=== PATIENT | female | born 1975 | race Caucasian/White ===

== ENCOUNTER 2022-01-24 06:35 | Inpatient (IN) | payer MEDICAID ==
[~2022-01-24] VITALS: Ht 165.1 cm; Wt 165.2 kg
[2022-01-24] VITALS (46 sets, daily range): BP systolic 109–155; BP diastolic 58–92
[2022-01-24] MEDS ORDERED: NALOXONE HCL 0.4 MG/ML 1ML VIAL IV PRN (07:00)
[2022-01-24] MEDS ORDERED: NALOXONE HCL 1 MG/ML 2ML VIAL IV ONE ×4 (07:00→07:15)
[2022-01-24] MEDS ORDERED: SODIUM CHLORIDE 0.9% 1,000 ML IV ONE (07:00)
[2022-01-24] MEDS ORDERED: ONDANSETRON HCL 4MG/2ML INJ IV ONE (07:15)
[2022-01-24] MEDS ORDERED: NALOXONE HCL 1 MG/ML 2ML VIAL IV PRN (07:15)
[2022-01-24 07:29] LABS: BG BASE EXCESS -1.4 mmol/L (-2.0-2.0); BG CARBOXYHEMOGLOBIN 1.1 % (0.5-1.5); BG DEOXYHEMOGLOBIN 4.6 % (0.0-5.0); BG FRACTION INSPIRED OXYGEN 21; BG HCO3 ACT 23.3 mmol/L (22.0-26.0); BG METHEMOGLOBIN 0.4 % (0.0-1.5); BG OXYGEN SATURATION 95.3 % (92.0-98.5); BG OXYHEMOGLOBIN 93.9 % (94.0-97.0); BG PCO2 39.3 mmHg (35.0-45.0); BG PH 7.391 (7.350-7.450); BG PO2 77.1 mmHg (75.0-100.0); BG SAMPLE SITE LEFT RADIAL; BG TOTAL HEMOGLOBIN 14.9 g/dL (12.0-18.0); BG VENT MODE ROOM AIR
[2022-01-24 08:30] LABS: PROTHROMBIN TIME 10.9 sec (9.6-11.0)
[2022-01-24] MEDS ORDERED: SUCCINYLCHOLINE CHLORIDE 200MG/10ML IV ONE (08:45)
[2022-01-24] MEDS ORDERED: MANNITOL 20% (20GM/100ML) BAG 500ML PREMIX IV ONE (08:45)
[2022-01-24] MEDS ORDERED: ETOMIDATE 2MG/ML 10ML VIAL IV ONE (08:45)
[2022-01-24] MEDS ORDERED: MIDAZOLAM HCL 50 MG in DEXTROSE 5% WATER 40 ML IV ONE (08:45)
[2022-01-24] MEDS ORDERED: LEVETIRACETAM 1000MG PREMIX 200 ML IV ONE (08:45)
[2022-01-24] MEDS ORDERED: PROPOFOL 10MG/ML 100ML 100 ML IV ONE (08:45)
[2022-01-24] MEDS ORDERED: FENTANYL CITRATE/PF 50MCG/ML 5ML VIAL ONE (08:47)
[2022-01-24] MEDS ORDERED: LIDOCAINE HCL 1%/EPI 1:200,000 30 ML VIAL ONE (08:56)
[2022-01-24] MEDS ORDERED: THROMBIN (BOVINE) 5000 UNITS/VIAL TOP ONE (08:57)
[2022-01-24] MEDS ORDERED: GENTAMICIN SULF 40MG/ML 2ML VIAL ONE (08:57)
[2022-01-24] MEDS ORDERED: MANNITOL 20% 250 ML IV SCH (09:00)
[2022-01-24] MEDS ORDERED: NICARDIPINE 100 MG in SODIUM CHLORIDE 0.9% 60 ML IV PRN ×2 (09:15→09:45)
[2022-01-24] MEDS ORDERED: MIDAZOLAM HCL 2 MG/2 ML VIAL IV ONE (09:30)
[2022-01-24] MEDS ORDERED: LIDOCAINE HCL 1% 30ML VIAL (10MG/ML) ONE ×2 (09:59→14:55)
[2022-01-24] MEDS ORDERED: MIDAZOLAM HCL 100 MG in SODIUM CHLORIDE 0.9% 100 ML IV PRN (10:00)
[2022-01-24 10:02] LABS: CLARITY URINE TURBID (CLEAR); COLOR URINE YELLOW (YELLOW); KETONES URINE NEGATIVE (NEGATIVE); LEUKOCYTE ESTERASE URINE 1+ (NEGATIVE); NITRITE URINE NEGATIVE (NEGATIVE); OCCULT BLOOD URINE 2+ (NEGATIVE); PROTEIN URINE 2+ (NEGATIVE); SPECIFIC GRAVITY URINE 1.028 (1.005-1.030)
[2022-01-24 10:52] LABS: *AMPHETAMINES SCREEN URINE NEGATIVE (NEGATIVE); *BARBITURATES SCREEN URINE NEGATIVE (NEGATIVE); *BENZODIAZEPINES SCREEN URINE NEGATIVE (NEGATIVE); *COCAINE SCREEN URINE NEGATIVE (NEGATIVE); CANNABINOID URINE SCREEN NEGATIVE (NEGATIVE); METHADONE URINE SCREEN NEGATIVE (NEGATIVE); PHENCYCLIDINE URINE SCREEN NEGATIVE (NEGATIVE)
[2022-01-24] MEDS ORDERED: PROPOFOL 200MG/20ML VIAL IV ONE (10:52)
[2022-01-24 11:09] LABS: OPIATES URINE SCREEN PRESUMTIVE POSITIVE (NEGATIVE)
[2022-01-24] MEDS ORDERED: PHENYTOIN SODIUM 250MG/5ML VIAL IV ONE ×2 (11:13→11:14)
[2022-01-24] MEDS ORDERED: LEVETIRACETAM 500 MG in SODIUM CHLORIDE 0.9% 100 ML IV SCH (12:00)
[2022-01-24] MEDS ORDERED: ONDANSETRON HCL 4MG/2ML INJ ONE (12:08)
[2022-01-24] MEDS ORDERED: DEXAMETHASONE 4MG/ML 1ML VIAL ONE (12:08)
[2022-01-24] MEDS ORDERED: EPHEDRINE SULFATE 50MG/ML VIAL ONE (12:08)
[2022-01-24] MEDS ORDERED: VECURONIUM BROMIDE 10 MG/VIAL IV ONE (12:08)
[2022-01-24] MEDS ORDERED: ACETAMINOPHEN 500MG TABLET ONE (12:14)
[2022-01-24 13:46] LABS: BG BASE EXCESS -2.7 mmol/L (-2.0-2.0); BG CARBOXYHEMOGLOBIN 0.6 % (0.5-1.5); BG DEOXYHEMOGLOBIN 4.2 % (0.0-5.0); BG FRACTION INSPIRED OXYGEN 50; BG HCO3 ACT 22.3 mmol/L (22.0-26.0); BG METHEMOGLOBIN 0.2 % (0.0-1.5); BG OXYGEN SATURATION 95.8 % (92.0-98.5); BG PCO2 39.7 mmHg (35.0-45.0); BG PH 7.367 (7.350-7.450); BG PO2 81.5 mmHg (75.0-100.0); BG SAMPLE SITE LEFT RADIAL; BG TOTAL HEMOGLOBIN 15.2 g/dL (12.0-18.0); BG TOTAL RESPIRATORY RATE 24 b/min; BG VENT MODE VENT - AC
[2022-01-24] MEDS: NICARDIPINE 100 MG in SODIUM CHLORIDE 0.9% 60 ML IV PRN ×2 (13:59→22:11)
[2022-01-24] MEDS ORDERED: CEFAZOLIN SODIUM 1000MG/VIAL IV SCH (14:00)
[2022-01-24] MEDS ORDERED: LEVETIRACETAM 500MG PREMIX 100 ML IV SCH (14:00)
[2022-01-24] MEDS: PROPOFOL 10MG/ML 100ML 100 ML IV PRN ×3 (14:11→21:56)
[2022-01-24] MEDS: DEXT 5%/LACTATED RINGERS 1,000 ML IV SCH (16:18)
[2022-01-24] MEDS: PHENYTOIN SODIUM 100MG/2ML VIAL IV SCH ×2 (16:18→21:00)
[2022-01-24] MEDS: CEFAZOLIN 1000MG PREMIX 50 ML IV SCH ×2 (16:18→21:00)
[2022-01-24 16:20] LABS: HEMATOCRIT. 42.5 % (36.0-48.0); HEMOGLOBIN. 13.9 g/dL (12.0-16.0); MEAN CORPUSCULAR HEMOGLOBIN 28.1 pg (28.0-32.0); MEAN PLATELET VOLUME 8.6 fl (7.4-10.4); PLATELET 318 x1000/uL (130-400); RED BLOOD CELL COUNT 4.94 mill/uL (4.2-5.4); RED CELL DISTRIBUTION WIDTH 14.8 % (11.6-14.6)
[2022-01-24 16:38] LABS: CHLORIDE 102 mEq/L (98-107)
[2022-01-24 17:06] LABS: CREATINE KINASE 126 IU/L (26-192); ETHANOL BLOOD < 10 mg/dL
[2022-01-24 20:22] LABS: PLATELET ESTIMATE NORMAL
[2022-01-24] MEDS: PIPERACILLIN/TAZOBACTAM 3.375 G in DEXTROSE 5% WATER 50 ML IV SCH (21:55)
[2022-01-24] MEDS: LEVETIRACETAM 500MG PREMIX 100 ML IV SCH (22:20)
[2022-01-24] MEDS ORDERED: SODIUM CHLORIDE 0.9% 1,000 ML IV SCH (23:30)
[2022-01-25] VITALS (92 sets, daily range): BP systolic 15–131; BP diastolic 15–104
[2022-01-25] MEDS: PROPOFOL 10MG/ML 100ML 100 ML IV PRN ×8 (01:14→22:29)
[2022-01-25] MEDS: NICARDIPINE 100 MG in SODIUM CHLORIDE 0.9% 60 ML IV PRN ×3 (05:15→20:26)
[2022-01-25] MEDS: PIPERACILLIN/TAZOBACTAM 3.375 G in DEXTROSE 5% WATER 50 ML IV SCH ×3 (05:15→22:09)
[2022-01-25] MEDS: PHENYTOIN SODIUM 100MG/2ML VIAL IV SCH ×3 (05:15→22:09)
[2022-01-25] MEDS: CEFAZOLIN 1000MG PREMIX 50 ML IV SCH ×3 (05:16→21:26)
[2022-01-25 05:44] LABS: BASOPHILS % 0.1 % (0.0-2.0); HEMATOCRIT. 40.5 % (36.0-48.0); HEMOGLOBIN. 13.5 g/dL (12.0-16.0); LYMPHOCYTES % 8.6 % (20.0-50.0); MEAN CORPUSCULAR HEMOGLOBIN 27.8 pg (28.0-32.0); MEAN CORPUSCULAR VOLUME 83.9 fL (81.0-99.0); MEAN PLATELET VOLUME 8.4 fl (7.4-10.4); MONOCYTES % 4.6 % (2.0-8.0); NEUTROPHILS % 86.7 % (40.0-76.0); PLATELET 339 x1000/uL (130-400); RED BLOOD CELL COUNT 4.83 mill/uL (4.2-5.4); RED CELL DISTRIBUTION WIDTH 14.6 % (11.6-14.6)
[2022-01-25] MEDS ORDERED: NALOXONE HCL 0.4MG/ML VIAL IV PRN (07:30)
[2022-01-25 09:00] LABS: BG BASE EXCESS -1.8 mmol/L (-2.0-2.0); BG CARBOXYHEMOGLOBIN 0.3 % (0.5-1.5); BG DEOXYHEMOGLOBIN 3.5 % (0.0-5.0); BG FRACTION INSPIRED OXYGEN 50; BG HCO3 ACT 21.8 mmol/L (22.0-26.0); BG METHEMOGLOBIN 0.2 % (0.0-1.5); BG OXYGEN SATURATION 96.5 % (92.0-98.5); BG PCO2 33.9 mmHg (35.0-45.0); BG PH 7.426 (7.350-7.450); BG PO2 85.1 mmHg (75.0-100.0); BG SAMPLE SITE RIGHT RADIAL; BG TOTAL HEMOGLOBIN 14.3 g/dL (12.0-18.0); BG VENT MODE VENT - AC
[2022-01-25] MEDS: DESMOPRESSIN ACETATE 4MCG/ML AMP IV SCH ×2 (09:00→12:38)
[2022-01-25] MEDS: DEXT 5%/LACTATED RINGERS 1,000 ML IV SCH ×2 (09:01→23:25)
[2022-01-25] MEDS: PANTOPRAZOLE SODIUM 40 MG/VIAL IV SCH (09:04)
[2022-01-25] MEDS: LEVETIRACETAM 500MG PREMIX 100 ML IV SCH ×2 (09:04→21:26)
[2022-01-25] MEDS: MORPHINE SULFATE 4 MG/ML CPJ (NOT FOR IM USE) IV PRN ×4 (09:08→22:30)
[2022-01-25] MEDS ORDERED: LABETALOL HCL 100 MG in DEXT 5% WATER 80 ML IV PRN (10:30)
[2022-01-25 17:28] LABS: CHLORIDE 109 mEq/L (98-107)
[2022-01-26] VITALS (92 sets, daily range): BP systolic 0–138; BP diastolic -2–78
[2022-01-26] MEDS: PROPOFOL 10MG/ML 100ML 100 ML IV PRN ×8 (01:58→22:05)
[2022-01-26] MEDS: NICARDIPINE 100 MG in SODIUM CHLORIDE 0.9% 60 ML IV PRN ×3 (03:22→17:22)
[2022-01-26] MEDS: PHENYTOIN SODIUM 100MG/2ML VIAL IV SCH ×3 (05:13→21:29)
[2022-01-26] MEDS: CEFAZOLIN 1000MG PREMIX 50 ML IV SCH ×2 (05:13→13:50)
[2022-01-26] MEDS: PIPERACILLIN/TAZOBACTAM 3.375 G in DEXTROSE 5% WATER 50 ML IV SCH ×3 (06:15→21:29)
[2022-01-26 06:20] LABS: BASOPHILS % 0.4 % (0.0-2.0); EOSINOPHILS % 0.1 % (0.0-5.0); HEMATOCRIT. 38.8 % (36.0-48.0); HEMOGLOBIN. 12.8 g/dL (12.0-16.0); LYMPHOCYTES % 20.1 % (20.0-50.0); MEAN CORPUSCULAR VOLUME 84.6 fL (81.0-99.0); MEAN PLATELET VOLUME 8.1 fl (7.4-10.4); MONOCYTES % 7.2 % (2.0-8.0); NEUTROPHILS % 72.2 % (40.0-76.0); PLATELET 298 x1000/uL (130-400); RED BLOOD CELL COUNT 4.59 mill/uL (4.2-5.4); RED CELL DISTRIBUTION WIDTH 14.9 % (11.6-14.6)
[2022-01-26] MEDS: MORPHINE SULFATE 4 MG/ML CPJ (NOT FOR IM USE) IV PRN (06:31)
[2022-01-26 06:59] LABS: CHLORIDE 112 mEq/L (98-107)
[2022-01-26] MEDS ORDERED: DEXT 5%/0.45% NACL 1000ML 1,000 ML IV SCH (07:45)
[2022-01-26 07:51] LABS: BG BASE EXCESS -0.3 mmol/L (-2.0-2.0); BG CARBOXYHEMOGLOBIN 0.3 % (0.5-1.5); BG DEOXYHEMOGLOBIN 3.8 % (0.0-5.0); BG HCO3 ACT 24.2 mmol/L (22.0-26.0); BG METHEMOGLOBIN 0.2 % (0.0-1.5); BG OXYGEN SATURATION 96.2 % (92.0-98.5); BG OXYHEMOGLOBIN 95.7 % (94.0-97.0); BG PCO2 38.8 mmHg (35.0-45.0); BG PH 7.412 (7.350-7.450); BG PO2 84.1 mmHg (75.0-100.0); BG SAMPLE SITE RIGHT BRACHIAL; BG TOTAL HEMOGLOBIN 13.8 g/dL (12.0-18.0); BG VENT MODE VENT - AC
[2022-01-26] MEDS: LEVETIRACETAM 500MG PREMIX 100 ML IV SCH ×2 (08:17→21:29)
[2022-01-26] MEDS: PANTOPRAZOLE SODIUM 40 MG/VIAL IV SCH (08:18)
[2022-01-26] MEDS ORDERED: DEXT 5%/LACTATED RINGERS 1,000 ML IV SCH (13:45)
[2022-01-26] MEDS: DEXT 5%/0.45% NACL 1000ML 1,000 ML IV SCH (13:50)
[2022-01-26] MEDS: IPRATROPIUM/ALBUTEROL 0.5-3(2.5)MG/3ML NEB HHN PRN (21:00)
[2022-01-27] VITALS (94 sets, daily range): BP systolic -2–143; BP diastolic -2–80
[2022-01-27] MEDS: NICARDIPINE 100 MG in SODIUM CHLORIDE 0.9% 60 ML IV PRN ×3 (00:43→21:35)
[2022-01-27] MEDS: PROPOFOL 10MG/ML 100ML 100 ML IV PRN ×8 (00:44→23:12)
[2022-01-27] MEDS: DEXT 5%/0.45% NACL 1000ML 1,000 ML IV SCH ×2 (03:43→23:28)
[2022-01-27] MEDS: PIPERACILLIN/TAZOBACTAM 3.375 G in DEXTROSE 5% WATER 50 ML IV SCH ×3 (05:13→21:00)
[2022-01-27] MEDS: PHENYTOIN SODIUM 100MG/2ML VIAL IV SCH ×3 (05:13→21:00)
[2022-01-27 06:23] LABS: BASOPHILS % 0.3 % (0.0-2.0); EOSINOPHILS % 0.6 % (0.0-5.0); HEMATOCRIT. 38.6 % (36.0-48.0); HEMOGLOBIN. 12.7 g/dL (12.0-16.0); LYMPHOCYTES % 21.9 % (20.0-50.0); MEAN CORPUSCULAR HEMOGLOBIN 27.8 pg (28.0-32.0); MEAN CORPUSCULAR VOLUME 84.7 fL (81.0-99.0); MEAN PLATELET VOLUME 8.2 fl (7.4-10.4); MONOCYTES % 8.5 % (2.0-8.0); NEUTROPHILS % 68.7 % (40.0-76.0); PLATELET 270 x1000/uL (130-400); RED BLOOD CELL COUNT 4.55 mill/uL (4.2-5.4); RED CELL DISTRIBUTION WIDTH 14.5 % (11.6-14.6)
[2022-01-27] MEDS: CARVEDILOL 3.125 MG TABLET PO SCH ×2 (08:34→21:00)
[2022-01-27] MEDS: PANTOPRAZOLE SODIUM 40 MG/VIAL IV SCH (08:34)
[2022-01-27] MEDS: LEVETIRACETAM 500MG PREMIX 100 ML IV SCH ×2 (08:35→20:59)
[2022-01-27 08:44] LABS: BG BASE EXCESS -0.6 mmol/L (-2.0-2.0); BG CARBOXYHEMOGLOBIN 0.9 % (0.5-1.5); BG DEOXYHEMOGLOBIN 2.8 % (0.0-5.0); BG FRACTION INSPIRED OXYGEN 50; BG HCO3 ACT 23.8 mmol/L (22.0-26.0); BG METHEMOGLOBIN 0.2 % (0.0-1.5); BG OXYGEN SATURATION 97.2 % (92.0-98.5); BG OXYHEMOGLOBIN 96.1 % (94.0-97.0); BG PH 7.414 (7.350-7.450); BG PO2 87.2 mmHg (75.0-100.0); BG SAMPLE SITE RIGHT RADIAL; BG TOTAL HEMOGLOBIN 12.8 g/dL (12.0-18.0); BG VENT MODE VENT - AC
[2022-01-27 10:47] LABS: CHLORIDE 112 mEq/L (98-107)
[2022-01-27] MEDS: MORPHINE SULFATE 4 MG/ML CPJ (NOT FOR IM USE) IV PRN (15:28)
[2022-01-27] MEDS: ACETAMINOPHEN 650MG/20.3ML UDC PO PRN (18:41)
[2022-01-28] VITALS (100 sets, daily range): BP systolic -4–140; BP diastolic -4–80
[2022-01-28] MEDS: PROPOFOL 10MG/ML 100ML 100 ML IV PRN ×7 (03:19→23:41)
[2022-01-28] MEDS: ACETAMINOPHEN 650MG/20.3ML UDC PO PRN ×3 (04:05→20:44)
[2022-01-28 04:56] LABS: BASOPHILS % 0.4 % (0.0-2.0); EOSINOPHILS % 1.9 % (0.0-5.0); HEMATOCRIT. 35.5 % (36.0-48.0); HEMOGLOBIN. 11.7 g/dL (12.0-16.0); LYMPHOCYTES % 17.7 % (20.0-50.0); MEAN CORPUSCULAR HEMOGLOBIN 27.8 pg (28.0-32.0); MEAN CORPUSCULAR VOLUME 83.9 fL (81.0-99.0); MEAN PLATELET VOLUME 8.2 fl (7.4-10.4); MONOCYTES % 6.8 % (2.0-8.0); NEUTROPHILS % 73.2 % (40.0-76.0); PLATELET 238 x1000/uL (130-400); RED BLOOD CELL COUNT 4.23 mill/uL (4.2-5.4); RED CELL DISTRIBUTION WIDTH 14.8 % (11.6-14.6)
[2022-01-28 05:18] LABS: CHLORIDE 111 mEq/L (98-107)
[2022-01-28] MEDS: PHENYTOIN SODIUM 100MG/2ML VIAL IV SCH ×3 (06:16→20:35)
[2022-01-28] MEDS: PIPERACILLIN/TAZOBACTAM 3.375 G in DEXTROSE 5% WATER 50 ML IV SCH ×2 (06:16→13:58)
[2022-01-28] MEDS: NICARDIPINE 100 MG in SODIUM CHLORIDE 0.9% 60 ML IV PRN ×2 (07:21→16:12)
[2022-01-28 07:28] LABS: BG BASE EXCESS -0.9 mmol/L (-2.0-2.0); BG CARBOXYHEMOGLOBIN 0.2 % (0.5-1.5); BG DEOXYHEMOGLOBIN 5.8 % (0.0-5.0); BG HCO3 ACT 23.5 mmol/L (22.0-26.0); BG METHEMOGLOBIN 0.2 % (0.0-1.5); BG OXYGEN SATURATION 94.2 % (92.0-98.5); BG OXYHEMOGLOBIN 93.8 % (94.0-97.0); BG PCO2 38.2 mmHg (35.0-45.0); BG PH 7.407 (7.350-7.450); BG PO2 72.4 mmHg (75.0-100.0); BG SAMPLE SITE RIGHT RADIAL; BG TOTAL HEMOGLOBIN 12.6 g/dL (12.0-18.0); BG VENT MODE VENT - AC
[2022-01-28] MEDS: CARVEDILOL 3.125 MG TABLET PO SCH ×2 (09:00→21:00)
[2022-01-28] MEDS: PANTOPRAZOLE SODIUM 40 MG/VIAL IV SCH (09:28)
[2022-01-28] MEDS: LEVETIRACETAM 500MG PREMIX 100 ML IV SCH ×2 (09:28→20:36)
[2022-01-28] MEDS ORDERED: POTASSIUM CHLORIDE 20MEQ/PACKET PO NR (09:45)
[2022-01-28] MEDS: IPRATROPIUM/ALBUTEROL 0.5-3(2.5)MG/3ML NEB HHN PRN (14:24)
[2022-01-28] MEDS: SODIUM CHLORIDE 0.45% 1,000 ML IV SCH (15:52)
[2022-01-28] MEDS: CEFEPIME 1,000 MG in DEXTROSE 5% WATER 50 ML IV SCH (18:59)
[2022-01-28] MEDS ORDERED: VANCOMYCIN 2,000 MG in DEXT 5% WATER 500 ML IV NR (19:00)
[2022-01-29] VITALS (110 sets, daily range): BP systolic -4–142; BP diastolic -4–87
[2022-01-29] MEDS: PROPOFOL 10MG/ML 100ML 100 ML IV PRN ×6 (03:02→16:32)
[2022-01-29 04:46] LABS: CLARITY URINE CLOUDY (CLEAR); COLOR URINE YELLOW (YELLOW); KETONES URINE NEGATIVE (NEGATIVE); LEUKOCYTE ESTERASE URINE NEGATIVE (NEGATIVE); NITRITE URINE NEGATIVE (NEGATIVE); OCCULT BLOOD URINE 3+ (NEGATIVE); PH URINE 5.5 (4.5-8.0); PROTEIN URINE TRACE (NEGATIVE); SPECIFIC GRAVITY URINE 1.014 (1.005-1.030); UROBILINOGEN URINE 0.2 E.U./dL (0.2-1.0)
[2022-01-29] MEDS: VANCOMYCIN 1G PREMIX 200 ML IV SCH ×3 (05:00→21:33)
[2022-01-29 05:29] LABS: BASOPHILS % 0.3 % (0.0-2.0); EOSINOPHILS % 3.4 % (0.0-5.0); HEMOGLOBIN. 10.8 g/dL (12.0-16.0); LYMPHOCYTES % 21.7 % (20.0-50.0); MEAN CORPUSCULAR HEMOGLOBIN 27.9 pg (28.0-32.0); MEAN CORPUSCULAR VOLUME 84.8 fL (81.0-99.0); MEAN PLATELET VOLUME 8.2 fl (7.4-10.4); MONOCYTES % 6.5 % (2.0-8.0); NEUTROPHILS % 68.1 % (40.0-76.0); PLATELET 214 x1000/uL (130-400); RED BLOOD CELL COUNT 3.88 mill/uL (4.2-5.4); RED CELL DISTRIBUTION WIDTH 14.6 % (11.6-14.6)
[2022-01-29] MEDS: PHENYTOIN SODIUM 100MG/2ML VIAL IV SCH ×3 (05:44→21:33)
[2022-01-29] MEDS: CEFEPIME 1,000 MG in DEXTROSE 5% WATER 50 ML IV SCH ×2 (05:45→17:49)
[2022-01-29] MEDS: ACETAMINOPHEN 650MG/20.3ML UDC PO PRN ×2 (05:45→14:23)
[2022-01-29 06:19] LABS: CHLORIDE 112 mEq/L (98-107)
[2022-01-29 06:24] LABS: PHOSPHORUS 2.8 mg/dL (2.5-4.9)
[2022-01-29 07:23] LABS: BG BASE EXCESS 2.2 mmol/L (-2.0-2.0); BG CARBOXYHEMOGLOBIN 0.3 % (0.5-1.5); BG DEOXYHEMOGLOBIN 3.2 % (0.0-5.0); BG HCO3 ACT 27.1 mmol/L (22.0-26.0); BG METHEMOGLOBIN 0.3 % (0.0-1.5); BG OXYGEN SATURATION 96.8 % (92.0-98.5); BG OXYHEMOGLOBIN 96.2 % (94.0-97.0); BG PCO2 43.6 mmHg (35.0-45.0); BG PH 7.412 (7.350-7.450); BG PO2 88.8 mmHg (75.0-100.0); BG SAMPLE SITE RIGHT RADIAL; BG TOTAL HEMOGLOBIN 13.4 g/dL (12.0-18.0); BG VENT MODE VENT - AC
[2022-01-29] MEDS: LEVETIRACETAM 500MG PREMIX 100 ML IV SCH ×2 (08:59→21:33)
[2022-01-29] MEDS: SODIUM CHLORIDE 0.45% 1,000 ML IV SCH ×2 (08:59→21:34)
[2022-01-29] MEDS: PANTOPRAZOLE SODIUM 40 MG/VIAL IV SCH (08:59)
[2022-01-29] MEDS: CARVEDILOL 3.125 MG TABLET PO SCH ×3 (09:00→21:00)
[2022-01-29] MEDS ORDERED: DESMOPRESSIN ACETATE 0.1MG TABLET PO NR (10:23)
[2022-01-29] MEDS: MORPHINE SULFATE 4 MG/ML CPJ (NOT FOR IM USE) IV PRN (12:11)
[2022-01-29] MEDS: NICARDIPINE 100 MG in SODIUM CHLORIDE 0.9% 60 ML IV PRN (14:02)
[2022-01-29] MEDS ORDERED: MORPHINE SULFATE 4 MG/ML CPJ (NOT FOR IM USE) IV PRN (14:15)
[2022-01-29] MEDS ORDERED: PROPOFOL 10MG/ML 100ML 100 ML IV PRN (15:00)
[2022-01-29] MEDS: NOREPINEPHRINE 32 MG in DEXT 5% WATER 218 ML IV PRN (19:09)
[2022-01-29] MEDS ORDERED: PHENYLEPHRINE 100 MG in DEXT 5% WATER 240 ML IV PRN (20:00)
[2022-01-30] VITALS (94 sets, daily range): BP systolic -4–158; BP diastolic -4–130
[2022-01-30] MEDS: VANCOMYCIN 1G PREMIX 200 ML IV SCH (05:54)
[2022-01-30] MEDS: CEFEPIME 1,000 MG in DEXTROSE 5% WATER 50 ML IV SCH ×2 (05:54→17:43)
[2022-01-30] MEDS: PHENYTOIN SODIUM 100MG/2ML VIAL IV SCH ×3 (05:55→21:49)
[2022-01-30] MEDS: CARVEDILOL 3.125 MG TABLET PO SCH ×2 (09:00→21:00)
[2022-01-30] MEDS: LEVETIRACETAM 500MG PREMIX 100 ML IV SCH ×2 (09:11→21:40)
[2022-01-30] MEDS: PANTOPRAZOLE SODIUM 40 MG/VIAL IV SCH (09:11)
[2022-01-30 09:43] LABS: BG BASE EXCESS 0.4 mmol/L (-2.0-2.0); BG CARBOXYHEMOGLOBIN 0.3 % (0.5-1.5); BG DEOXYHEMOGLOBIN 2.6 % (0.0-5.0); BG FRACTION INSPIRED OXYGEN 85; BG HCO3 ACT 28.5 mmol/L (22.0-26.0); BG OXYGEN SATURATION 97.4 % (92.0-98.5); BG OXYHEMOGLOBIN 97.1 % (94.0-97.0); BG PCO2 63.4 mmHg (35.0-45.0); BG PH 7.271 (7.350-7.450); BG PO2 111.2 mmHg (75.0-100.0); BG SAMPLE SITE RIGHT RADIAL; BG VENT MODE VENT - AC
[2022-01-30 11:45] LABS: BG CARBOXYHEMOGLOBIN 0.3 % (0.5-1.5); BG DEOXYHEMOGLOBIN 1.1 % (0.0-5.0); BG FRACTION INSPIRED OXYGEN 100; BG METHEMOGLOBIN 0.5 % (0.0-1.5); BG OXYGEN SATURATION 98.9 % (92.0-98.5); BG OXYHEMOGLOBIN 98.1 % (94.0-97.0); BG PCO2 60.8 mmHg (35.0-45.0); BG PH 7.266 (7.350-7.450); BG PO2 155.5 mmHg (75.0-100.0); BG SAMPLE SITE LEFT RADIAL; BG TOTAL HEMOGLOBIN 12.6 g/dL (12.0-18.0); BG VENT MODE VENT - AC
[2022-01-30] MEDS: ACETAMINOPHEN 650MG/20.3ML UDC PO PRN ×2 (12:24→21:49)
[2022-01-30] MEDS: VANCOMYCIN 1250MG in DEXTROSE 5% WATER 250ML IV SCH (14:45)
[2022-01-30 16:54] LABS: BG BASE EXCESS -2.3 mmol/L (-2.0-2.0); BG CARBOXYHEMOGLOBIN 0.1 % (0.5-1.5); BG DEOXYHEMOGLOBIN 1.5 % (0.0-5.0); BG FRACTION INSPIRED OXYGEN 100; BG HCO3 ACT 23.8 mmol/L (22.0-26.0); BG METHEMOGLOBIN 0.4 % (0.0-1.5); BG OXYGEN SATURATION 98.5 % (92.0-98.5); BG PH 7.331 (7.350-7.450); BG PO2 136.8 mmHg (75.0-100.0); BG TOTAL HEMOGLOBIN 12.4 g/dL (12.0-18.0); BG VENT MODE VENT - AC
[2022-01-30 17:13] LABS: BG SAMPLE SITE RIGHT RADIAL
[2022-01-30] MEDS: SODIUM CHLORIDE 0.45% 1,000 ML IV SCH (17:43)
[2022-01-30] MEDS: DESMOPRESSIN ACETATE 4MCG/ML AMP IV SCH (17:43)
[2022-01-31] VITALS (94 sets, daily range): BP systolic -30–173; BP diastolic -30–125
[2022-01-31 04:40] LABS: BASOPHILS % 0.3 % (0.0-2.0); EOSINOPHILS % 2.6 % (0.0-5.0); HEMATOCRIT. 37.9 % (36.0-48.0); HEMOGLOBIN. 12.2 g/dL (12.0-16.0); LYMPHOCYTES % 14.4 % (20.0-50.0); MEAN CORPUSCULAR HEMOGLOBIN 27.8 pg (28.0-32.0); MEAN CORPUSCULAR VOLUME 86.2 fL (81.0-99.0); MEAN PLATELET VOLUME 8.2 fl (7.4-10.4); MONOCYTES % 7.1 % (2.0-8.0); NEUTROPHILS % 75.6 % (40.0-76.0); PLATELET 242 x1000/uL (130-400); RED BLOOD CELL COUNT 4.39 mill/uL (4.2-5.4); RED CELL DISTRIBUTION WIDTH 14.9 % (11.6-14.6)
[2022-01-31] MEDS: VANCOMYCIN 1250MG in DEXTROSE 5% WATER 250ML IV SCH ×2 (05:15→16:59)
[2022-01-31] MEDS: CEFEPIME 1,000 MG in DEXTROSE 5% WATER 50 ML IV SCH (05:15)
[2022-01-31] MEDS: SODIUM CHLORIDE 0.45% 1,000 ML IV SCH (05:15)
[2022-01-31] MEDS: PHENYTOIN SODIUM 100MG/2ML VIAL IV SCH ×3 (05:15→21:13)
[2022-01-31] MEDS: DESMOPRESSIN ACETATE 4MCG/ML AMP IV SCH ×2 (05:15→16:59)
[2022-01-31] MEDS: CARVEDILOL 3.125 MG TABLET PO SCH ×2 (07:31→21:00)
[2022-01-31 07:53] LABS: BG BASE EXCESS 0.7 mmol/L (-2.0-2.0); BG CARBOXYHEMOGLOBIN 0.3 % (0.5-1.5); BG DEOXYHEMOGLOBIN 2.7 % (0.0-5.0); BG HCO3 ACT 26.7 mmol/L (22.0-26.0); BG METHEMOGLOBIN 0.2 % (0.0-1.5); BG OXYGEN SATURATION 97.3 % (92.0-98.5); BG OXYHEMOGLOBIN 96.8 % (94.0-97.0); BG PCO2 48.6 mmHg (35.0-45.0); BG PH 7.358 (7.350-7.450); BG PO2 96.1 mmHg (75.0-100.0); BG SAMPLE SITE RIGHT RADIAL; BG TOTAL HEMOGLOBIN 12.4 g/dL (12.0-18.0); BG VENT MODE VENT - AC
[2022-01-31] MEDS: PANTOPRAZOLE SODIUM 40 MG/VIAL IV SCH (08:08)
[2022-01-31] MEDS: LEVETIRACETAM 500MG PREMIX 100 ML IV SCH ×2 (08:08→21:13)
[2022-01-31] MEDS: ACETAMINOPHEN 650MG/20.3ML UDC PO PRN ×2 (08:08→13:58)
[2022-01-31] MEDS: NOREPINEPHRINE 32 MG in DEXT 5% WATER 218 ML IV PRN (10:37)
[2022-01-31] MEDS: DEXTROSE 5% WATER 1,000 ML IV SCH (10:38)
[2022-01-31] MEDS: MEROPENEM 1000MG in NORMAL SALINE 100ML IV SCH (16:59)
[2022-02-01] VITALS (69 sets, daily range): BP systolic -29–136; BP diastolic -29–93
[2022-02-01 03:13] LABS: BASOPHILS % 0.1 % (0.0-2.0); EOSINOPHILS % 2.7 % (0.0-5.0); HEMATOCRIT. 36.7 % (36.0-48.0); HEMOGLOBIN. 11.6 g/dL (12.0-16.0); LYMPHOCYTES % 8.9 % (20.0-50.0); MEAN CORPUSCULAR HEMOGLOBIN 27.5 pg (28.0-32.0); MEAN CORPUSCULAR VOLUME 86.7 fL (81.0-99.0); MONOCYTES % 6.2 % (2.0-8.0); NEUTROPHILS % 82.1 % (40.0-76.0); PLATELET 283 x1000/uL (130-400); RED BLOOD CELL COUNT 4.23 mill/uL (4.2-5.4); RED CELL DISTRIBUTION WIDTH 15.2 % (11.6-14.6)
[2022-02-01] MEDS: DEXTROSE 5% WATER 1,000 ML IV SCH (05:01)
[2022-02-01] MEDS: MEROPENEM 1000MG in NORMAL SALINE 100ML IV SCH ×2 (05:02→08:11)
[2022-02-01] MEDS: VANCOMYCIN 1250MG in DEXTROSE 5% WATER 250ML IV SCH (05:02)
[2022-02-01] MEDS: NOREPINEPHRINE 32 MG in DEXT 5% WATER 218 ML IV PRN (05:02)
[2022-02-01] MEDS: DESMOPRESSIN ACETATE 4MCG/ML AMP IV SCH (05:05)
[2022-02-01] MEDS: PHENYTOIN SODIUM 100MG/2ML VIAL IV SCH (05:05)
[2022-02-01] MEDS: CARVEDILOL 3.125 MG TABLET PO SCH (08:05)
[2022-02-01] MEDS: LEVETIRACETAM 500MG PREMIX 100 ML IV SCH (08:11)
[2022-02-01] MEDS: PANTOPRAZOLE SODIUM 40 MG/VIAL IV SCH (08:11)
== END 2022-02-01 16:47 | DRG 21 ==
LOC: ER 06:35 → MICUNO 09:22 → ENRESERV 10:03 → MICUSO 01-25 19:00
PROVIDERS: ADMIT Family Medicine Adult Medicine; ATTEND Family Medicine Adult Medicine
PROC: 009600Z Drainage of Cerebral Ventricle with Drainage Device, Open Approach (ICD-10-PCS; principal; 2022-01-24)
PROC: 00C70ZZ Extirpation of Matter from Cerebral Hemisphere, Open Approach (ICD-10-PCS; 2022-01-24)
PROC: 4A103BD Monitoring of Intracranial Pressure, Percutaneous Approach (ICD-10-PCS; 2022-01-24)
PROC: 00H032Z Insertion of Monitoring Device into Brain, Percutaneous Approach (ICD-10-PCS; 2022-01-24)
PROC: 00U207Z Supplement Dura Mater with Autologous Tissue Substitute, Open Approach (ICD-10-PCS; 2022-01-24)
PROC: 5A1955Z Respiratory Ventilation, Greater than 96 Consecutive Hours (ICD-10-PCS; 2022-01-24)
PROC: 0BH17EZ Insertion of Endotracheal Airway into Trachea, Via Natural or Artificial Opening (ICD-10-PCS; 2022-01-24)
PROC: 05H633Z Insertion of Infusion Device into Left Subclavian Vein, Percutaneous Approach (ICD-10-PCS; 2022-01-24)
PROC: B547ZZA Ultrasonography of Left Subclavian Vein, Guidance (ICD-10-PCS; 2022-01-24)
PROC: 4A00X4Z Measurement of Central Nervous Electrical Activity, External Approach (ICD-10-PCS; 2022-01-31)
DX: I61.5 Nontraumatic intracerebral hemorrhage, intraventricular (principal); J96.00 Acute respiratory failure, unspecified whether with hypoxia or hypercapnia; G93.41 Metabolic encephalopathy; I50.30 Unspecified diastolic (congestive) heart failure; E66.9 Obesity, unspecified; I13.0 Hypertensive heart and chronic kidney disease with heart failure and stage 1 through stage 4 chronic kidney disease, or unspecified chronic kidney disease; I16.1 Hypertensive emergency; N18.1 Chronic kidney disease, stage 1; I62.9 Nontraumatic intracranial hemorrhage, unspecified; N39.0 Urinary tract infection, site not specified; E87.20 Acidosis, unspecified; E87.0 Hyperosmolality and hypernatremia; Z78.1 Physical restraint status
CPT/HCPCS: 31500; 36415; 36573; 36600; 71045; 78610; 80048; 80053; 80202; 80305; 80307; 80320; 80329; 81003; 82375; 82550; 82805; 82962; 83605; 83735; 83880; 83930; 83935; 84100; 84145; 84295; 84443; 84478; 84484; 85025; 87077; 87186; 93005; 93306; 93970; 94003; 94640; 99291; A6261; A9512; C1725; C9113; J0690; J0692; J1100; J1165; J1580; J1953; J2185; J2250; J2270; J2310; J2405; J2543; J2597; J2704; J3010; J3370; J3490; J7030; J7050; J7060; J7070; J7120; J7121; A4315; C1713; G0480

== ENCOUNTER 2022-02-01 16:45 | Inpatient (IN) | payer OTHER ==
[~2022-02-01] VITALS: Ht 165.1 cm; Wt 171.9 kg
[2022-02-01] VITALS (24 sets, daily range): BP systolic 91–186; BP diastolic 62–113
[2022-02-01] MEDS: DEXTROSE 5% WATER 1,000 ML IV SCH ×2 (18:30→23:44)
[2022-02-01] MEDS: NOREPINEPHRINE 32 MG in DEXT 5% WATER 218 ML IV PRN (18:50)
[2022-02-01] MEDS: VASOPRESSIN 20 UNIT in SODIUM CHLORIDE 0.9% 99 ML IV PRN (20:17)
[2022-02-01] MEDS ORDERED: SODIUM CHLORIDE 0.9% 500 ML IV SCH (22:15)
[2022-02-01] MEDS ORDERED: DOBUTAMINE 250MG PREMIX 250 ML IV SCH (22:15)
[2022-02-01 23:50] LABS: CLARITY URINE TURBID (CLEAR); COLOR URINE DARK YELLOW (YELLOW); KETONES URINE TRACE (NEGATIVE); LEUKOCYTE ESTERASE URINE 1+ (NEGATIVE); NITRITE URINE POSITIVE (NEGATIVE); OCCULT BLOOD URINE 3+ (NEGATIVE); PROTEIN URINE 2+ (NEGATIVE); SPECIFIC GRAVITY URINE 1.025 (1.005-1.030)
[2022-02-02] VITALS (33 sets, daily range): BP systolic 69–168; BP diastolic 37–103
[2022-02-02] MEDS ORDERED: INSULIN REGULAR 100U/100ML PMX 100 ML IV PRN
[2022-02-02] MEDS ORDERED: THIAMINE HCL 500 MG in SODIUM CHLORIDE 0.9% 95 ML IV NR ×2
[2022-02-02] MEDS ORDERED: METHYLPREDNISOLONE SOD SUCC 2,000 MG in DEXT 5% WATER 100 ML IV NR ×2
[2022-02-02] MEDS: BLOOD SUGAR DIAGNOSTIC STRIP TEST SCH ×5 (00:20→08:00)
[2022-02-02 00:21] LABS: BG BASE EXCESS -5.7 mmol/L (-2.0-2.0); BG CARBOXYHEMOGLOBIN 0.1 % (0.5-1.5); BG DEOXYHEMOGLOBIN 1.6 % (0.0-5.0); BG FRACTION INSPIRED OXYGEN 100; BG HCO3 ACT 21.2 mmol/L (22.0-26.0); BG METHEMOGLOBIN 0.3 % (0.0-1.5); BG OXYGEN SATURATION 98.4 % (92.0-98.5); BG PCO2 46.7 mmHg (35.0-45.0); BG PH 7.274 (7.350-7.450); BG PO2 127.3 mmHg (75.0-100.0); BG SAMPLE SITE ALINE; BG VENT MODE VENT - AC
[2022-02-02] MEDS ORDERED: ALBUMIN HUMAN 25GM/500ML (5%) IV NR ×2 (01:00→03:15)
[2022-02-02] MEDS: PIPERACILLIN/TAZOBACTAM 3.375 G in DEXTROSE 5% WATER 50 ML IV SCH ×2 (01:30→06:38)
[2022-02-02] MEDS: DEXTROSE 5% WATER 1,000 ML IV SCH (01:33)
[2022-02-02 01:46] LABS: BASOPHILS % 0.1 % (0.0-2.0); EOSINOPHILS % 3.3 % (0.0-5.0); HEMATOCRIT. 33.1 % (36.0-48.0); HEMOGLOBIN. 10.8 g/dL (12.0-16.0); LYMPHOCYTES % 7.3 % (20.0-50.0); MEAN CORPUSCULAR HEMOGLOBIN 27.9 pg (28.0-32.0); MEAN CORPUSCULAR VOLUME 85.4 fL (81.0-99.0); MEAN PLATELET VOLUME 9.1 fl (7.4-10.4); MONOCYTES % 5.6 % (2.0-8.0); NEUTROPHILS % 83.7 % (40.0-76.0); PLATELET 250 x1000/uL (130-400); RED BLOOD CELL COUNT 3.88 mill/uL (4.2-5.4); RED CELL DISTRIBUTION WIDTH 14.9 % (11.6-14.6)
[2022-02-02 01:47] LABS: CHLORIDE 119 mEq/L (98-107)
[2022-02-02 01:51] LABS: INR 1.2; PARTIAL THROMBOPLASTIN TIME 35.3 sec (23.4-31.0)
[2022-02-02 01:55] LABS: AMYLASE 22 IU/L (25-115); CREATINE KINASE 781 IU/L (26-192); PHOSPHORUS 4.1 mg/dL (2.5-4.9)
[2022-02-02] MEDS: VASOPRESSIN 20 UNIT in SODIUM CHLORIDE 0.9% 99 ML IV PRN (02:46)
[2022-02-02] MEDS: KCL 20MEQ/100ML PREMIX 100 ML IV NR ×2 (04:11→06:32)
[2022-02-02 04:46] LABS: BG BASE EXCESS -3.4 mmol/L (-2.0-2.0); BG CARBOXYHEMOGLOBIN 0.3 % (0.5-1.5); BG DEOXYHEMOGLOBIN 3.3 % (0.0-5.0); BG FRACTION INSPIRED OXYGEN 80; BG HCO3 ACT 24.2 mmol/L (22.0-26.0); BG METHEMOGLOBIN 0.3 % (0.0-1.5); BG OXYGEN SATURATION 96.7 % (92.0-98.5); BG OXYHEMOGLOBIN 96.1 % (94.0-97.0); BG PCO2 55.3 mmHg (35.0-45.0); BG PH 7.259 (7.350-7.450); BG PO2 94.6 mmHg (75.0-100.0); BG SAMPLE SITE ALINE; BG TOTAL HEMOGLOBIN 12.3 g/dL (12.0-18.0); BG TOTAL RESPIRATORY RATE 24 b/min; BG VENT MODE VENT - APRV
[2022-02-02 06:37] LABS: HEMATOCRIT. 33.3 % (36.0-48.0); HEMOGLOBIN. 10.7 g/dL (12.0-16.0); MEAN CORPUSCULAR HEMOGLOBIN 27.7 pg (28.0-32.0); MEAN CORPUSCULAR VOLUME 85.8 fL (81.0-99.0); MEAN PLATELET VOLUME 9.4 fl (7.4-10.4); PLATELET 243 x1000/uL (130-400); RED BLOOD CELL COUNT 3.88 mill/uL (4.2-5.4); RED CELL DISTRIBUTION WIDTH 14.8 % (11.6-14.6)
[2022-02-02 06:47] LABS: INR 1.2; PARTIAL THROMBOPLASTIN TIME 37.9 sec (23.4-31.0)
[2022-02-02 06:49] LABS: CREATINE KINASE MB FRACTION 2.1 ng/mL (0.5-3.6); PHOSPHORUS 4.2 mg/dL (2.5-4.9)
[2022-02-02 07:30] LABS: BG BASE EXCESS -3.9 mmol/L (-2.0-2.0); BG CARBOXYHEMOGLOBIN 0.6 % (0.5-1.5); BG DEOXYHEMOGLOBIN 0.8 % (0.0-5.0); BG FRACTION INSPIRED OXYGEN 80; BG HCO3 ACT 22.8 mmol/L (22.0-26.0); BG METHEMOGLOBIN 0.3 % (0.0-1.5); BG OXYGEN SATURATION 99.2 % (92.0-98.5); BG OXYHEMOGLOBIN 98.3 % (94.0-97.0); BG PCO2 47.8 mmHg (35.0-45.0); BG PH 7.296 (7.350-7.450); BG PO2 170.1 mmHg (75.0-100.0); BG SAMPLE SITE ALINE; BG TOTAL HEMOGLOBIN 12.9 g/dL (12.0-18.0); BG TOTAL RESPIRATORY RATE 24 b/min; BG VENT MODE VENT - APRV
[2022-02-02] MEDS ORDERED: THIAMINE HCL 100 MG in SODIUM CHLORIDE 0.9% 49 ML IV SCH (08:00)
[2022-02-02] MEDS ORDERED: METHYLPREDNISOLONE SOD SUCC 500 MG in DEXT 5% WATER 100 ML IV SCH (08:00)
[2022-02-02] MEDS: NOREPINEPHRINE 32 MG in DEXT 5% WATER 218 ML IV PRN (08:10)
[2022-02-02 09:25] LABS: CLARITY URINE TURBID (CLEAR); COLOR URINE DARK YELLOW (YELLOW); KETONES URINE TRACE (NEGATIVE); LEUKOCYTE ESTERASE URINE 1+ (NEGATIVE); NITRITE URINE POSITIVE (NEGATIVE); OCCULT BLOOD URINE 3+ (NEGATIVE); PROTEIN URINE 3+ (NEGATIVE); SPECIFIC GRAVITY URINE 1.025 (1.005-1.030)
[2022-02-02 12:37] LABS: PLATELET ESTIMATE NORMAL
== END 2022-02-02 10:31 | DRG 52 ==
LOC: MICUSO 16:45
PROVIDERS: ADMIT Family Medicine Adult Medicine; ATTEND Family Medicine Adult Medicine
PROC: 0BH17EZ Insertion of Endotracheal Airway into Trachea, Via Natural or Artificial Opening (ICD-10-PCS; principal; 2022-02-01)
PROC: 5A1935Z Respiratory Ventilation, Less than 24 Consecutive Hours (ICD-10-PCS; 2022-02-01)
PROC: 03HY32Z Insertion of Monitoring Device into Upper Artery, Percutaneous Approach (ICD-10-PCS; 2022-02-01)
PROC: 05HY33Z Insertion of Infusion Device into Upper Vein, Percutaneous Approach (ICD-10-PCS; 2022-02-01)
DX: I61.8 Other nontraumatic intracerebral hemorrhage
CPT/HCPCS: 36415; 36600; 71045; 80048; 80076; 80202; 81003; 82150; 82375; 82550; 82553; 82805; 82962; 82977; 83605; 83615; 83735; 83930; 84100; 84484; 85025; 86850; 86900; 87070; 93005; J1250; J1815; J2543; J2930; J3411; J3480; J3490; J7050; J7060; P9041